=== PATIENT | female | born 1975 | race African-American/Black ===

== ENCOUNTER 2017-01-30 06:45 | Observation (INO) | payer SELFPAY ==
--- NOTE | ~2017-01-30 | HP ---
History And Physical [facility] [id number] [place]. [address] NAME: AHMET VELA : 77 STATUS : ADM Mikayla PAT#: [id number] AGE: 41 ADM/REG DATE : 01/30/17 MR#: [id number] REPORT SERV DATE: 01/30/17 DICTATED BY: GERARDO PHAM DATE: 01/30/17 REPORT STATUS : Draft TRANSCRIBED BY: MODJudith DATE: 01/30/17 DATE OF ADMISSION: 01/30/2017 PRIMARY CARE PROVIDER: Isael Flanagan NP, at [facility]. CHIEF COMPLAINT: Chest pain on the right side and palpitations. HISTORY OF PRESENT ILLNESS: This is a pleasant 41-year-old female with a history of atypical right-sided chest pain status post two evaluations in the Chest Pain Observation Unit in 2012 and 2014 with two negative evaluations including normal treadmill- only stress test. Since then, she reports she was diagnosed with hypertension. She was on lisinopril 20 mg p.o. daily, which was then decreased to 10 mg p.o. daily, and a second medication added due to fatigue with lisinopril. She reports she stopped seeing her primary care provider approximately over six months ago initially because she thought she could not see them because she did not have insurance and then secondly because she did not have the time to make an appointment. She then ran out of all of her medications approximately two months ago. She reports the first blood pressure medicine that she does not recall the name of she ran out of prior to that time. She reports that she gets headaches and occasional nosebleeds, but does not check her blood pressure and reports no access to checking blood pressure, so she does not know if that is correlated with elevated blood pressure. She reports that recently she awakens with her heart racing from sleeping and jitteriness feeling. She notes right-sided chest pain when she has headaches and/or nosebleeds, but again does not check her blood pressure to know if that it is the cause. She does not note any chest pain associated with exertional activities. 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 She reports that her heart was racing all shifts, but she does not know if it was simply because she was working fast. She had noted that she was concerned because she awakened from sleep the night prior with heart racing more than usual. She also reports that she felt right-sided chest pain her entire shift that never resolved while working. She reports that it is resolved at this present time. She was given 1 inch of nitro paste in the emergency room and her blood pressure did come down from 158/115 down to approximately 120/70. She reports that her chest pain is possibly worse with being stressed out and working quickly, but denies any particular exertional component. The patient also reports that she does not eat very well and that she did not eat her entire shift last night. She reports she eats approximately one meal daily along with some snacks and it tends to be a diet that is high in sodium and processed foods. PAST MEDICAL HISTORY: 1. Atypical chest pain for which she has had several [facility] admissions. Two negative treadmill-only stress test in 02/2013 and on 03/31/2015. 2. Hypertension, diagnosed over one year ago. 3. Headaches. 4. Appendicitis at age 18, requiring a colostomy and skin graft status post revision ostomy. 5. Renal calculi. 6. Uterine fibroids. History And Physical [address] [address] NAME: AHMET VELA : 77 STATUS : ADM Mikayla PAT#: [id number] AGE: 41 ADM/REG DATE : 01/30/17 MR#: [id number] REPORT SERV DATE: 01/30/17 DICTATED BY: GERARDO PHAM DATE: 01/30/17 REPORT STATUS : Draft TRANSCRIBED BY: ROSALBA DATE: 01/30/17 7. Recurrent bronchitis. 8. Pneumonia in 2008 and at the age of 23. PAST SURGICAL HISTORY: 1. Cholecystectomy. 2. Appendectomy. 3. Left wrist surgery in 2010. SOCIAL HISTORY: Single. Mother lives nearby. 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 She denies any exercise program and reports that she works quite a few hours. She smokes one pack of cigarettes every three days. She drinks one night per week and approximately three liquor drinks at a time. No illicit drug use. FAMILY HISTORY: Mother with myocardial infarction at the age of 55 with subsequent stents. She is alive and well at this time. REVIEW OF SYSTEMS: As above per HPI, all other systems reviewed and negative. ALLERGIES: STEROIDS, REACTION UNKNOWN. MEDICATIONS: 1. Lisinopril 10 mg p.o. daily per patient's report (listed as 20 mg p.o. daily), but the patient reports it was decreased prior to her stopping the medicine on her own due to running out, one tablet p.o. daily. 2. Multivitamin one tablet p.o. daily. PHYSICAL EXAMINATION: VITAL SIGNS: Oxygen saturation 96% on room air, temperature 98.6; pulse 98, subsequently 53; respiratory rate 18; blood pressure initially 158/115, then 120/70, and most recently 148/87. GENERAL: Well developed, well nourished. In no apparent distress. HEENT: Head normocephalic. No xanthelasma. Sclera clear, anicteric. Moist mucous membranes without pallor. No lymphadenopathy. No deficits noted. NECK: Trachea midline. Supple. No thyromegaly, JVD, or bruits. RESPIRATORY: Unlabored respirations. Breath sounds clear bilaterally to posterior auscultation. No wheezes, rhonchi or crackles. CARDIOVASCULAR: Regular rate and rhythm. No murmur, rub, or gallop appreciated. No chest wall tenderness to palpation. ABDOMEN: Soft, nontender, and nondistended. Active bowel sounds auscultated x4 quadrants. No organomegaly and no masses. No aortic bruit. EXTREMITIES: DP/PT and radial pulses 2+ bilaterally. No clubbing, cyanosis, or edema. SKIN: Warm, dry, intact. No rash. Normal turgor. MUSCULOSKELETAL: Moves all extremities in bed without difficulty. NEURO/PSYCH: Alert and oriented x3 with no acute distress. Affect appropriate to current situation. History And Physical [address] [address] NAME: AHMET VELA : 77 STATUS : ADM Mikayla PAT#: [id number] AGE: 41 ADM/REG DATE : 01/30/17 MR#: [id number] REPORT SERV DATE: 01/30/17 DICTATED BY: GERARDO PHAM DATE: 01/30/17 REPORT STATUS : Draft TRANSCRIBED BY: MODL DATE: 01/30/17 LABORATORY DATA: BMP: Sodium 142, potassium low at 3.4, creatinine 0.84, glucose 86, calcium 8.7, magnesium 1.7. CBC: White blood cell count 7.8, hemoglobin 13, hematocrit 38.8, platelets a 171, troponin less than 0.02. STUDIES: Chest x-ray: Minimal right basilar atelectasis, otherwise, no acute cardiopulmonary abnormality. EKG: Personally interpreted normal sinus rhythm with no ischemia. Telemetry: Normal sinus rhythm. ASSESSMENT AND PLAN: 1. Right-sided chest pain. First troponin was negative. EKG benign. The patient reports that it was constant all day and is perhaps worse when she is stressed out and has associated headaches and sometimes nosebleeds. It is unknown if there is a correlation between elevated blood pressure that she does not check it at home. If the second troponin, then a plan on a nuclear stress test today given cardiac risk factors of untreated hypertension, tobacco use, family history of premature CAD in her mother. If this stress test is low risk with no ischemia, RN is to discharge the patient to home with followup with primary care provider in less than one week. 2. Medication noncompliance. The patient reports that she has not made a followup appointment with her PCP as she did not have time and therefore has run out of her medications. She is willing to go back to her prior PCP at [facility], Isael Flanagan NP. I will arrange a followup in less than one week. I advised the patient to check her blood pressure while she is at work at [email or web address]. She is to inquire whether they have a way to check blood pressure there. If not, she may go into a fire station if she is unable to obtain a blood pressure cuff. I also advised her to follow a 2 g sodium diet. I will restart lisinopril. I did discuss at length with the patient. She reports that she did not tolerate lisinopril at 20 mg p.o. daily as it caused her to be quite fatigued and therefore I will restart lisinopril at 10 mg p.o. daily as she reports this is the dose that she was on before she ran out of her medications. She is to follow up with the primary care provider in less than one week and they can further adjust the medications. She vocalized understanding with this plan. 3. Hypertension. This is now untreated secondary to above, please see discussion above. 4. Palpitations/heart racing. We will replete electrolytes as both her potassium and magnesium are low here. She has normal sinus rhythm here and we will continue to monitor. She is to follow up with primary care provider. There have been no events again on monitor at this time. 5. Tobacco use. I advised complete cessation for cardiovascular well being. 6. Hypokalemia and hypomagnesemia. These need to be repleted at this present time and I have ordered that. Further recommendations forthcoming from rounding ribbon sweatband operator for [facility] who will see the patient down in the stress testing area. History And Physical [address] [place]. [address] NAME: AHMET VELA : 77 STATUS : ADM Mikayla PAT#: [id number] AGE: 41 ADM/REG DATE : 01/30/17 MR#: [id number] REPORT SERV DATE: 01/30/17 DICTATED BY: GERARDO PHAM DATE: 01/30/17 REPORT STATUS : Draft TRANSCRIBED BY: ROSALBA DATE: 01/30/17 HAYDE/ROSALBA Gerardo Pham NP / [id number] CC: Terri Hastings, MSN, CT MANAGER-BC
[2017-01-30 06:15] LABS: BASOPHILS 0.1 %; BASOPHILS ABSOLUTE 0.01 10/3/uL (0.0-0.16); EOSINOPHILS 0.8 %; EOSINOPHILS ABSOLUTE 0.06 10/3/uL (0.0-0.53); HEMATOCRIT 38.8 % (36.0-48.0); IMMATURE GRANULOCYTES 0.3 %; IMMATURE GRANULOCYTES ABSOLUTE 0.02 10/3/uL (0.0-0.11); LYMPHOCYTES 38.5 %; LYMPHOCYTES ABSOLUTE 2.99 10/3/uL (0.67-4.30); MEAN CORPUS HGB CONC 33.5 g/dL (32.0-36.0); MEAN CORPUSCULAR HEMOGLOB 30.4 pg (26.0-34.0); MEAN CORPUSCULAR VOLUME 90.9 fL (80-100); MEAN PLATELET VOLUME 10.1 fL (9.2-13.0); NEUTROPHILS 51.3 %; NEUTROPHILS ABSOLUTE 3.98 10/3/uL (2.02-8.40); PLATELET COUNT 171 10/3/uL (150-400); RBC DISTRIBUTION WIDTH 14.5 % (12.0-16.0); RED CELL COUNT 4.27 10/6/uL (4.0-5.6); WHITE BLOOD CELLS 7.8 10/3/uL (4.5-10.5)
[2017-01-30 06:16] LABS: ER CBC TAT 0 Hrs 04 MinsNP; MANUAL DIFF NO %
[2017-01-30 06:24] LABS: INTERNATIONAL NORMAL RATI 1.1 UNITS (-); PARTIAL THROMBO TIME 28.5 SEC (22.5-37.2); PROTIME (NOT ORD) 14.4 SEC (12.0-14.5)
[2017-01-30 06:34] LABS: CALCIUM, SERUM 8.7 MG/DL (8.5-10.4); CHEST PAIN PROFILE TAT 0 Hrs 23 Mins; CHLORIDE, SERUM 106 MMOL/L (96-112); CO2 (CARBON DIOXIDE) 26 MMOL/L (24-34); CREATININE 0.84 MG/DL (0.55-1.02); GFR AFRICAN AMERICAN 101 ML/MIN (>=60); GFR NON AFRICAN AMERICAN 87 ML/MIN (>=60); GLUCOSE, SERUM 86 MG/DL (60-99); POTASSIUM, SERUM 3.4 MMOL/L (3.5-5.3); SODIUM, SERUM 142 MMOL/L (135-148); TROPONIN I <0.02 NG/ML (<0.05)
[2017-01-30 06:36] LABS: BUN (BLOOD UREA NITROGEN) 14 MG/DL (6-23)
[~2017-01-30 06:45] MED LIST: DENIES HOME MEDS; LEXAPRO10 PO; PRIN5 PO; PROVHFA INH; PT DENIES HOME MEDS
[2017-01-30] MEDS ORDERED: ZESTRIL20 MG PO (08:16)
[2017-01-30] MEDS ORDERED: THERGRANM PO (08:17)
[2017-01-30] MEDS ORDERED: PRIN10 PO (16:10)
== END 2017-01-30 17:05 | disposition home or self-care (01) ==
LOC: ER 06:45 → CDU1 09:58
PROVIDERS: Specialist
DX: R07.9 Chest pain, unspecified (principal); I10 Essential (primary) hypertension; R51 Headache; J40 Bronchitis, not specified as acute or chronic; E87.6 Hypokalemia; E83.42 Hypomagnesemia; Z87.442 Personal history of urinary calculi; Z90.49 Acquired absence of other specified parts of digestive tract; Z88.8 Allergy status to other drugs, medicaments and biological substances
CPT/HCPCS: 71010; 78452; 80048; 83735; 84484; 85025; 85610; 85730; 93005; 93017; 96374; 96375; 99285; A9270-GY; A9502; G0378; J2405

== ENCOUNTER 2017-04-20 10:16 | Emergency (ER) | payer OTHER ==
[~2017-04-20 10:16] MED LIST changes: +PRIN10 PO; +THERGRANM PO; +ZESTRIL20 MG PO
[2017-04-20 11:08] LABS: INTERNATIONAL NORMAL RATI 1.1 UNITS (-); PARTIAL THROMBO TIME 28.2 SEC (22.5-37.2); PROTIME (NOT ORD) 13.7 SEC (12.0-14.5)
[2017-04-20 11:09] LABS: BASOPHILS 0.3 %; BASOPHILS ABSOLUTE 0.02 10/3/uL (0.0-0.16); EOSINOPHILS 2.4 %; EOSINOPHILS ABSOLUTE 0.14 10/3/uL (0.0-0.53); ER CBC TAT 0 Hrs 12 Mins; HEMATOCRIT 34.9 % (36.0-48.0); HEMOGLOBIN 12.1 g/dL (12.0-16.0); IMMATURE GRANULOCYTES 0.5 %; IMMATURE GRANULOCYTES ABSOLUTE 0.03 10/3/uL (0.0-0.11); LYMPHOCYTES 31.6 %; LYMPHOCYTES ABSOLUTE 1.88 10/3/uL (0.67-4.30); MANUAL DIFF NO %; MEAN CORPUS HGB CONC 34.7 g/dL (32.0-36.0); MEAN CORPUSCULAR HEMOGLOB 31.5 pg (26.0-34.0); MEAN CORPUSCULAR VOLUME 90.9 fL (80-100); MEAN PLATELET VOLUME 10.5 fL (9.2-13.0); MONOCYTES 6.7 %; NEUTROPHILS 58.5 %; NEUTROPHILS ABSOLUTE 3.47 10/3/uL (2.02-8.40); PLATELET COUNT 172 10/3/uL (150-400); RBC DISTRIBUTION WIDTH 14.3 % (12.0-16.0); RED CELL COUNT 3.84 10/6/uL (4.0-5.6); WHITE BLOOD CELLS 5.9 10/3/uL (4.5-10.5)
[2017-04-20 11:12] LABS: D-DIMER QUANTITATIVE < 0.27 ug/mLFEU (< 0.50)
[2017-04-20 11:17] LABS: CHEST PAIN PROFILE TAT 0 Hrs 20 Mins; CHLORIDE, SERUM 112 MMOL/L (96-112); CO2 (CARBON DIOXIDE) 25 MMOL/L (24-34); CREATININE 0.76 MG/DL (0.55-1.02); GFR AFRICAN AMERICAN 114 ML/MIN (>=60); GFR NON AFRICAN AMERICAN 98 ML/MIN (>=60); SODIUM, SERUM 142 MMOL/L (135-148); TROPONIN I <0.02 NG/ML (<0.05)
[2017-04-20 11:19] LABS: BUN (BLOOD UREA NITROGEN) 10 MG/DL (6-23); CALCIUM, SERUM 8.6 MG/DL (8.5-10.4); GLUCOSE, SERUM 118 MG/DL (60-99); POTASSIUM, SERUM 3.4 MMOL/L (3.5-5.3)
== END 2017-04-20 12:20 | disposition home or self-care (01) ==
LOC: ER 10:16
PROVIDERS: Emergency Medicine
DX: R07.89 Other chest pain (principal); F17.200 Nicotine dependence, unspecified, uncomplicated; Z88.6 Allergy status to analgesic agent; Z79.899 Other long term (current) drug therapy
CPT/HCPCS: 71010; 80048; 83735; 84484; 85025; 85379; 85610; 85730; 99285